=== PATIENT | male | born 1995 ===

== ENCOUNTER 2017-05-27 00:33 | Emergency (ER) | payer OTHER ==
--- NOTE | 2017-05-27 00:47 | ED PDOC ---
HPI: Wound Care - HPI Time Seen by Provider: 05/27/17 00:43 Chief Complaint (Provider): left hand laceration History Per: Patient Additional Complaint(s): 22-year-old right-hand dominant male presents with superficial puncture wound to left hand that he noticed earlier this evening at work. Patient thinks that he was putting away dishes and cut his hand accidentally. No active bleeding noted, patient denies pain, numbness or tingling to the affected area. Patient' s tetanus is up-to-date. He states his [employer] supervisor told him he needed to come to ED for further evaluation. Past Medical History Reviewed: Historical Data, Nursing Documentation, Vital Signs - Medical History PMH: No Chronic Diseases - Surgical History Surgical History: No Surg Hx - Family History Family History: States: No Known Family Hx - Living Arrangements Living Arrangements: With Family - Social History Current smoker - smoking cessation education provided: No Alcohol: Social Drugs: Denies - Immunization History Hx Tetanus Toxoid Vaccination: Yes - Home Medications Home Medications: Ambulatory Orders Medication Instructions Recorded No Known Home Med 05/27/17 Review of Systems ROS Statement: Except As Marked, All Systems Reviewed And Found Negative Skin: Positive for: Other (puncture wound left hand) Physical Exam - Reviewed Nursing Documentation Reviewed: Yes Vital Signs Reviewed: Yes - Physical Exam Appears: Positive for: Well, Non-toxic, No Acute Distress Skin: Negative for: Rash Eye Exam: Positive for: Normal appearance Extremity: Positive for: Other (puncture wound noted to palmar aspect of left first digit proximally, no active bleeding, full range of motion of all digits of left hand with normal sensation surrounding wound and normal distal sensation ) Neurologic/Psych: Positive for: Alert, Oriented - ECG O2 Sat by Pulse Oximetry: 98 Pulse Ox Interpretation: Normal Medical Decision Making Medical Decision Making: Impression: puncture wound Plan: Patient's tetanus is up-to-date. Wound was cleansed with normal saline, bacitracin bandage applied. Patient was given wound care instructions. Disposition - Clinical Impression Clinical Impression: Puncture wound - Patient ED Disposition Is Patient to be Admitted: No Counseled Patient/Family Regarding: Diagnosis, Need For Followup - Disposition Referrals: [facility] [Outside] Disposition: Routine/Home Disposition Time: 00:51 Condition: STABLE Additional Instructions: Keep wound clean and dry. Tylenol for pain as needed. Follow up as needed with clinic or primary doctor. Instructions: Puncture Wound (ED)
[2017-05-27 00:57] VITALS: O2SAT 98
[2017-05-27 01:00] VITALS: BMI 22.8
[2017-05-27 01:04] VITALS: BP 120/47; PULSE 71; RESP 16; TEMP 97.5
== END 2017-05-27 01:04 | disposition home or self-care (01) ==
LOC: H.ER 00:33
DX: S61.432A Puncture wound without foreign body of left hand, initial encounter (principal); W45.8XXA Other foreign body or object entering through skin, initial encounter; Y93.9 Activity, unspecified